=== PATIENT | female | born 1955 | race American Indian/Alaskan Native ===

== ENCOUNTER 2017-09-21 23:16 | Emergency (ER) | payer MEDICARE ==
--- NOTE | 2017-09-22 00:06 | XRay Report ---
FINAL REPORT PROCEDURE: XR CHEST ROUTINE 2V TECHNIQUE: PA and lateral chest radiographs were obtained. CPT 57592 HISTORY: Shortness of breath. COMPARISON: No prior studies are available for comparison. FINDINGS: Heart: Normal. Prominent epicardial fat. Mediastinum/Vessels: Mild aortic tortuosity. Lungs/Pleural space: Mild hyperinflation. Left lower lobe linear opacities. Mild symmetric biapical pleural thickening. Bony thorax: Mild osteopenia and degenerative changes of the spine. Other: IMPRESSION: Aortic tortuosity. Hyperinflation suggests obstructive physiology. Left lower lobe linear opacities likely scarring/atelectasis.
[2017-09-22] MEDS ORDERED: TORADOL IV ONE (01:00)
[2017-09-22] MEDS ORDERED: ZOFRAN IV ONE (01:00)
[2017-09-22] MEDS ORDERED: MORPHINE IV ONE (01:00)
[2017-09-22] MEDS ORDERED: GEODON IM ONE (01:01)
[2017-09-22] MEDS ORDERED: NACL 0.9% 1000 ML 1,000 ML IV ONE (01:02)
[2017-09-22 01:20] LABS: Basophils # (Auto) 0.1 K/mm3 (0.0-0.1); Basophils % (Auto) 0.7 % (0.0-1.8); Eosinophils % (Auto) 0.2 % (0.0-4.3); Hematocrit 34.5 % (30.3-42.9); Hemoglobin 11.6 gm/dl (10.1-14.3); Lymphocytes # (Auto) 1.8 K/mm3 (1.2-5.4); Mean Corpuscular HGB Conc 34 % (30-34); Mean Corpuscular Hemoglobin 29 pg (28-32); Mean Corpuscular Volume 86 fl (79-97); Monocytes # (Auto) 1.1 K/mm3 (0.0-0.8); Monocytes % (Auto) 10.5 % (0.0-7.3); Platelet Count 550 K/mm3 (140-440); Red Cell Distribution Width 15.3 % (13.2-15.2)
--- NOTE | 2017-09-22 02:41 | Emergency Department Report ---
ED Chest Pain HPI - General Chief Complaint: Upper Respiratory Infection Stated Complaint: ANXIETY Time Seen by Provider: 09/22/17 00:53 Source: patient, EMS Mode of arrival: Ambulatory Limitations: No Limitations - History of Present Illness Initial Comments: 62-year-old female with past medical history of panic attacks, hepatitis C, schizophrenia, asthma, hypertension presents to the hospital complaining of pneumonia, chest pain, and back pain. Patient states she recently got a new fan and thinks that the air blowing off her has caused her to get pneumonia. She complains of cough that is nonproductive. No complaints of fever. Patient is hyperventilating and tachycardic when I entered the room stating she is having lower sternal pain and back pain. She complains of intermittent contractions of her toes versus likely pedal spasm secondary to hyperventilation. Patient also complains of one month of difficulty swallowing her pills because she feels like it gets stuck in her upper throat operative area. Patient is due for her evening dose of Geodon but states she does not want to try to swallow pills at this time. Patient apparently was seen by a physician today and started on Levaquin for presumed infection/pneumonia. Patient is stating that she feels a grating typically sees a IV for chest pain back pain was helps her symptoms. Severity scale (0 -10): 4 - Related Data Home Medications Medication Instructions Recorded Confirmed Last Taken Budesoni/Formotero 160-4.5(Nf) 2 puff IH BID 03/08/13 03/08/13 Unknown [Symbicort 160-4.5] Esomeprazole Magnesium [Nexium] 40 mg PO QDAY 03/08/13 03/08/13 Unknown Ipratropium/Albuterol Sulfate 1 ampul IH Q4HRT 03/08/13 03/08/13 Unknown [Duoneb 0.5 mg-3 mg/3 ml Soln] Ziprasidone HCl [Geodon] 80 mg PO BID 03/08/13 03/08/13 Unknown hydrOXYzine HCL [Atarax] 25 mg PO 03/08/13 03/08/13 Unknown traZODone [Desyrel] 50 mg PO QHS 03/08/13 03/08/13 Unknown Previous Rx's Medication Instructions Recorded Last Taken Type ALBUTEROL Inhaler [ProAir HFA 2 puff IH QID PRN #1 inhalation 03/08/13 Unknown Rx Inhaler] predniSONE [Deltasone] 20 mg PO QDAY #5 tablet 03/08/13 Unknown Rx Ibuprofen Oral Liqd [Motrin] 800 mg PO TID PRN #20 dose 09/22/17 Unknown Rx Allergies Allergy/AdvReac Type Severity Reaction Status Date / Time No Known Allergies Allergy Verified 03/08/13 03:15 Heart Score - HEART Score History: Slightly suspicious EKG: Non-specific Age: 45-65 Risk factors: 1-2 risk factors Troponin: < normal limit HEART Score: 3 ED Review of Systems ROS: Stated complaint: ANXIETY Other details as noted in HPI Comment: All other systems reviewed and negative ED Past Medical Hx - Past Medical History Previous Medical History?: Yes Hx Hypertension: Yes Hx Asthma: Yes Additional medical history: Anxiety, Panic attacks, Hepatitis C, Herpes - Surgical History Past Surgical History?: Yes Additional Surgical History: Partial Hysterectomy - Social History Smoking Status: Former Smoker Substance Use Type: None - Medications Home Medications: Home Medications Medication Instructions Recorded Confirmed Last Taken Type ALBUTEROL Inhaler [ProAir HFA 2 puff IH QID PRN #1 inhalation 03/08/13 Unknown Rx Inhaler] Budesoni/Formotero 160-4.5(Nf) 2 puff IH BID 03/08/13 03/08/13 Unknown History [Symbicort 160-4.5] Esomeprazole Magnesium [Nexium] 40 mg PO QDAY 03/08/13 03/08/13 Unknown History Ipratropium/Albuterol Sulfate 1 ampul IH Q4HRT 03/08/13 03/08/13 Unknown History [Duoneb 0.5 mg-3 mg/3 ml Soln] Ziprasidone HCl [Geodon] 80 mg PO BID 03/08/13 03/08/13 Unknown History hydrOXYzine HCL [Atarax] 25 mg PO 03/08/13 03/08/13 Unknown History predniSONE [Deltasone] 20 mg PO QDAY #5 tablet 03/08/13 Unknown Rx traZODone [Desyrel] 50 mg PO QHS 03/08/13 03/08/13 Unknown History Ibuprofen Oral Liqd [Motrin] 800 mg PO TID PRN #20 dose 09/22/17 Unknown Rx ED Physical Exam - General Limitations: No Limitations - Other Other exam information: General: No limitations, patient is alert in no acute distress Head exam: Atraumatic, normocephalic Eyes exam: Normal appearance ENT: Moist mucous membrane, normal oropharynx Neck exam: Normal inspection, full range of motion, no meningismus nontender Respiratory exam: Clear to auscultation bilateral, no wheezes, rales, crackles, hyperventilating Cardiovascular: Tachycardic, regular rhythm, reproducible lower sternal chest wall tenderness to palpation Abdomen: Soft, nondistended, and nontender, with normal bowel sounds, no rebound, or guarding Extremity: Full range of motion normal inspection no deformity, no calf tenderness or edema Back: Normal Inspection, full range of motion, generalized posterior thoracic and lumbar muscular tenderness to palpation Neurologic: Alert, oriented x3, cranial nerves intact, no motor or sensory deficit Psychiatric: normal affect, normal mood Skin: Warm, dry, intact ED Course Vital Signs 09/21/17 09/22/17 09/22/17 23:32 02:14 04:04 Temperature 98 F 98.2 F Pulse Rate 121 H 93 H 96 H Respiratory 16 19 19 Rate Blood Pressure 138/85 116/75 146/77 [Right] O2 Sat by Pulse 98 98 98 Oximetry - Reevaluation(s) Reevaluation #1: 09/22/17 02:41 Geodon IM, IV morphine, Toradol with improvement in hyperventilation and tachycardia. Normal saline initiated while waiting blood results ENEIDA score - Eneida Score Age > 65: (0) No Aspirin use within the Past 7 Days: (0) No 3 or more CAD Risk Factors: (0) No 2 or more Angina events in past 24 hrs: (0) No Known CAD with more than 50% Stenosis: (0) No Elevated Cardiac Markers: (0) No ST Deviation Greater than 0.5mm: (0) No ENEIDA Score: 0 ED Medical Decision Making - Lab Data Result diagrams: 09/22/17 01:11 09/22/17 02:42 Lab Results 09/22/17 09/22/17 09/22/17 Range/Units 01:11 01:11 02:42 WBC 10.7 (4.5-11.0) K/mm3 RBC 4.00 (3.65-5.03) M/mm3 Hgb 11.6 (10.1-14.3) gm/dl Hct 34.5 (30.3-42.9) % MCV 86 (79-97) fl MCH 29 (28-32) pg MCHC 34 (30-34) % RDW 15.3 H (13.2-15.2) % Plt Count 550 H (140-440) K/mm3 Lymph % (Auto) 17.0 (13.4-35.0) % [place] % (Auto) 10.5 H (0.0-7.3) % Eos % (Auto) 0.2 (0.0-4.3) % Baso % (Auto) 0.7 (0.0-1.8) % Lymph # 1.8 (1.2-5.4) K/mm3 [place] # 1.1 H (0.0-0.8) K/mm3 Eos # 0.0 (0.0-0.4) K/mm3 Baso # 0.1 (0.0-0.1) K/mm3 Seg Neutrophils % 71.6 H (40.0-70.0) % Seg Neutrophils # 7.6 (1.8-7.7) K/mm3 D-Dimer 190.90 (0-234) ng/mlDDU Sodium 136 L (137-145) mmol/L Potassium 3.9 (3.6-5.0) mmol/L Chloride 98.3 (98-107) mmol/L Carbon Dioxide 26 (22-30) mmol/L Anion Gap 16 mmol/L BUN 7 (7-17) mg/dL Creatinine 1.0 (0.7-1.2) mg/dL Estimated GFR > 60 ml/min BUN/Creatinine Ratio 7 % Glucose 104 H (65-100) mg/dL Calcium 8.6 (8.4-10.2) mg/dL Total Creatine Kinase 239 H (30-135) units/L CK-MB (CK-2) 3.5 (0.0-4.0) ng/mL CK-MB (CK-2) Rel Index 1.4 (0-4) Troponin T < 0.010 (0.00-0.029) ng/mL - EKG Data -: EKG Interpreted by Ma EKG shows normal: sinus rhythm, axis (qrs axis 26), QRS complexes (qrsd 85), ST- T waves (lvh, repol, lat t inv) Rate: tachycardia (120) - EKG Data When compared to previous EKG there are: previous EKG unavailable - Radiology Data Radiology results: report reviewed FINAL REPORT PROCEDURE: XR CHEST ROUTINE 2V TECHNIQUE: PA and lateral chest radiographs were obtained. CPT 98002 HISTORY: Shortness of breath. COMPARISON: No prior studies are available for comparison. FINDINGS: Heart: Normal. Prominent epicardial fat. Mediastinum/Vessels: Mild aortic tortuosity. Lungs/Pleural space: Mild hyperinflation. Left lower lobe linear opacities. Mild symmetric biapical pleural thickening. Bony thorax: Mild osteopenia and degenerative changes of the spine. Other: IMPRESSION: Aortic tortuosity. Hyperinflation suggests obstructive physiology. Left lower lobe linear opacities likely scarring/atelectasis. - Medical Decision Making Patient presented with musculoskeletal chest and back pain. No signs of infiltrate x-ray. Patient started being placed on Levaquin by another treating provider. Patient presented hyperventilating and anxious. Symptoms improved after Toradol, morphine, Zofran, and IM Geodon. She complains of one-month of ongoing difficulty swallowing pills but able to tolerate food and liquids will be discharged to follow up with GI as well as her primary care doctor. - Differential Diagnosis costochondritis, pneumonia, pulmonary embolism, pneumonia, anxiety Critical Care Time: No Critical care attestation.: If time is entered above; I have spent that time in minutes in the direct care of this critically ill patient, excluding procedure time. ED Disposition Clinical Impression: Costochondritis, Musculoskeletal back pain, Schizophrenia, Anxiety, Dysphagia Disposition: DC- TO HOME OR SELFCARE Is pt being admited?: No Does the pt Need Aspirin: No Condition: Stable Instructions: Costochondritis (ED), Chronic Dysphagia (ED), Back Pain (ED), Anxiety (ED) Additional Instructions: Take the medication as prescribed. Follow-up with your primary care doctor or the clinic provided. Follow with the GI doctor for further workup of your swallowing problems Prescriptions: Ibuprofen Oral Liqd [Motrin] 800 mg PO TID PRN #20 dose PRN Reason: Pain Referrals: ARIANNE HAYNES MD [Primary Care Provider] - 3-5 Days VLADIMIR ROYAL MD [Staff Physician] - 3-5 Days (GI doctor) [facility] [Provider Group] - 3-5 Days (primary care clinic) Time of Disposition: 06:14
[2017-09-22 03:19] LABS: BUN/Creatinine Ratio 7; Blood Urea Nitrogen 7 mg/dL (7-17); Calcium 8.6 mg/dL (8.4-10.2); Creatine Kinase MB 3.5 ng/mL (0.0-4.0); Hemolysis Index 5
[2017-09-22 04:05] VITALS: BP 146/77
== END 2017-09-22 06:43 | disposition home or self-care (01) ==
LOC: ED 23:16
DX: M94.0 Chondrocostal junction syndrome [Tietze] (principal); M54.9 Dorsalgia, unspecified; F20.9 Schizophrenia, unspecified; F41.9 Anxiety disorder, unspecified; R13.10 Dysphagia, unspecified; I10 Essential (primary) hypertension; J45.909 Unspecified asthma, uncomplicated
CPT/HCPCS: 36415; 71046; 80048; 82550; 82553; 84484; 85025; 85379; 93005; 93010; 96372; 96374; 96375; 99285; J1885; J2270; J2405; J3486; J7030

== ENCOUNTER 2020-09-05 | Observation (INO) | payer MEDICARE, MEDICAID | END 2020-09-08 14:30 | disposition home or self-care (01) | PROVIDERS: ADMIT Internal Medicine | DX: J44.1 Chronic obstructive pulmonary disease with (acute) exacerbation (principal); M94.0 Chondrocostal junction syndrome [Tietze]; I24.9 Acute ischemic heart disease, unspecified; N17.0 Acute kidney failure with tubular necrosis; K21.9 Gastro-esophageal reflux disease without esophagitis; D72.829 Elevated white blood cell count, unspecified; I10 Essential (primary) hypertension; F41.0 Panic disorder [episodic paroxysmal anxiety]; F32.9 Major depressive disorder, single episode, unspecified; G47.00 Insomnia, unspecified; E66.01 Morbid (severe) obesity due to excess calories; B19.20 Unspecified viral hepatitis C without hepatic coma; Z87.891 Personal history of nicotine dependence; Z90.710 Acquired absence of both cervix and uterus; Z79.51 Long term (current) use of inhaled steroids; Z79.899 Other long term (current) drug therapy; Z88.6 Allergy status to analgesic agent; Z68.45 Body mass index [BMI] 70 or greater, adult | CPT/HCPCS: 36415; 71045; 71250; 78452; 78580; 80048; 80053; 83036; 83880; 84484; 85025; 85027; 87040; 93005; 93017; 93306; 94640; 96361; 96365; 96367; 96372; 96375; 96376; 99285; A9502; A9540; G0378; J0456; J0696; J1170; J1644; J2060; J2405; J2785; J2920; J3010; J7030 ==